=== PATIENT | female | born 1985 | race Asian ===

== ENCOUNTER 2018-06-11 17:14 | Emergency (ER) | payer MEDICAID ==
[~2018-06-11] VITALS: Ht 165.1 cm; Wt 52.2 kg
[~2018-06-11 17:14] MED LIST: FERROUS SULFAT325 M2 PO
[2018-06-11 17:22] VITALS: Ht 165.1 cm; Wt 52.2 kg
[2018-06-11 19:55] VITALS: BP 118/55
== END 2018-06-11 19:55 | disposition home or self-care (01) ==
LOC: ED 17:14
DX: T78.01XA Anaphylactic reaction due to peanuts, initial encounter (principal); E05.90 Thyrotoxicosis, unspecified without thyrotoxic crisis or storm; Z91.010 Allergy to peanuts; X58.XXXA Exposure to other specified factors, initial encounter
CPT/HCPCS: J0171; J1200; J7512; J7613

== ENCOUNTER 2020-01-24 11:30 | Emergency (ER) | payer OTHER ==
[~2020-01-24] VITALS: Ht 157.5 cm; Wt 54.4 kg
[2020-01-24 11:33] VITALS: Ht 157.5 cm; Wt 54.4 kg
[2020-01-24 12:07] LABS: CALCIUM 8.4 mg/dL (8.5-10.1); CARBON DIOXIDE 29.8 mmol/L (21-32); CHLORIDE SERUM 104 mmol/L (98-107); CREATININE SERUM 0.9 mg/dL (0.6-1.0); GFR1 > 60 mL/min; GLUCOSE SERUM 105 mg/dL (74-106); SODIUM SERUM 140 mmol/L (136-145)
[2020-01-24 12:12] LABS: ALBUMIN 3.7 g/dL (3.4-5.0); ALKALINE PHOSPHATASE 49 U/L (46-116); ALT/SGPT 19 U/L (14-59); AST/SGOT 18 U/L (15-37); BILIRUBIN TOTAL 0.4 mg/dL (0.20-1.00)
[2020-01-24 14:04] LABS: BASOPHIL % 0.4 % (0-2); PLATELET COUNT 271 x10^3mcL (130-400); RED CELL DISTRIBUTION WIDTH 14.8 % (11.5-14.5)
[2020-01-24 14:33] VITALS: BP 104/57
== END 2020-01-24 14:33 | disposition home or self-care (01) ==
LOC: ED 11:30
PROVIDERS: Emergency Medicine
DX: T78.1XXA Other adverse food reactions, not elsewhere classified, initial encounter (principal); X58.XXXA Exposure to other specified factors, initial encounter; E03.9 Hypothyroidism, unspecified; Z91.010 Allergy to peanuts
CPT/HCPCS: J1200; J2930